=== PATIENT | male | born 2000 | race Asian ===

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

== ENCOUNTER 2025-03-14 12:09 | Inpatient (IN) | payer MEDICAID, OTHER ==
[~2025-03-14] VITALS: Ht 160 cm; Wt 49.0 kg
[2025-03-14 14:15] LABS: GLUCOMETER DEV NAME(LOC) POC.BV; POC SARS-COV2 AG, FIA NEGATIVE (NEGATIVE)
[2025-03-14 16:10] VITALS: BP 113/75; PULSE 86; RESP 16; TEMP 98.2; O2SAT 97
[2025-03-14] MEDS ORDERED: NICOTINE 14 MG/24 HOUR PATCH TD PRN (19:30)
[2025-03-14] MEDS ORDERED: ALBUTEROL SULFATE HFA 90 MCG/PUFF 8 GM INHALER IH PRN (19:30)
[2025-03-14] MEDS ORDERED: IBUPROFEN 400 MG TABLET PO PRN (19:30)
[2025-03-14] MEDS ORDERED: PETROLATUM,WHITE 28 GM JELLY TP PRN (19:30)
[2025-03-14] MEDS ORDERED: DOCUSATE SODIUM 100 MG CAPSULE PO PRN (19:30)
[2025-03-14] MEDS ORDERED: LOPERAMIDE HCL 2 MG CAPSULE PO PRN (19:30)
[2025-03-14] MEDS ORDERED: GuaiFENesin/D-METHORPHAN [SUGAR-FREE] 200-20MG/10 ML SYRUP UDCUP PO PRN (19:30)
[2025-03-14] MEDS ORDERED: ACETAMINOPHEN 325 MG TABLET PO PRN (19:30)
[2025-03-14] MEDS ORDERED: MAG HYDROX/ALUMINUM HYD/SIMETH ES 30 ML SUSPENSION UDCUP PO PRN (19:30)
[2025-03-14] MEDS ORDERED: ONDANSETRON 4 MG TABLET PO PRN (19:30)
[2025-03-14 20:11] VITALS: BP 118/74; PULSE 65; RESP 19; TEMP 98.1; O2SAT 100
[2025-03-15 08:27] VITALS: BP 113/74; PULSE 79; RESP 16; TEMP 97.5; O2SAT 99
[2025-03-15 09:41] LABS: CHOL/HDL RATIO 3.3 (4.2-7.3); LDL CHOL (CALC.) 63.0 mg/dL (0-130)
[2025-03-15 20:05] VITALS: BP 105/66; PULSE 80; RESP 18; TEMP 98.1; O2SAT 96
[2025-03-15] MEDS: ZOLPIDEM TARTRATE 10 MG TABLET PO PRN (21:30)
[2025-03-16 05:08] LABS: HEPATITIS C AB (EIA) Non Reactive (Non Reactive)
[2025-03-16 08:19] VITALS: BP 107/66; PULSE 87; RESP 18; TEMP 98.3; O2SAT 96
[2025-03-16] MEDS: MAGNESIUM HYDROXIDE SUSPENSION 30 ML UDCUP PO PRN (10:11)
[2025-03-16 20:31] VITALS: BP 115/88; PULSE 94; RESP 17; TEMP 99; O2SAT 99
[2025-03-17 08:28] VITALS: BP 116/77; PULSE 92; RESP 17; TEMP 97.5; O2SAT 97
[2025-03-17 20:26] VITALS: BP 118/78; PULSE 93; RESP 17; TEMP 97.8; O2SAT 98
[2025-03-18 08:10] VITALS: BP 117/90; PULSE 107; RESP 17; TEMP 98.4; O2SAT 99
[2025-03-18 09:20] LABS: APPEARANCE,URINE CLEAR (CLEAR); GLUCOSE, URINE (UA) NEGATIVE (NEGATIVE); LEUKOCYTE ESTERASE ,URINE NEGATIVE (NEGATIVE); NITRATE,URINE NEGATIVE (NEGATIVE); OCCULT BLOOD,URINE NEGATIVE (NEGATIVE); PH,URINE DRUG SCREEN 6.5 (5.0-8.0); SPECIFIC GRAVITIY, URINE 1.019 (1.003-1.030)
[2025-03-18 09:29] LABS: ALCOHOL, URINE DRUG SCREEN NEGATIVE (NEGATIVE); AMPHET/METH SCREEN,URINE NEGATIVE (NEGATIVE); BARBITURATE SCREEN, URINE NEGATIVE (NEGATIVE); CANNABINOID SCREEN,URINE POSITIVE (NEGATIVE); COCAINE SCREEN,URINE NEGATIVE (NEGATIVE); METHADONE SCREEN, URINE NEGATIVE (NEGATIVE)
[2025-03-18 17:24] VITALS: BP 133/89; PULSE 108; RESP 18; TEMP 98.1; O2SAT 98
[2025-03-18 22:24] VITALS: BP 128/86; PULSE 94; RESP 19; TEMP 98.1; O2SAT 97
[2025-03-19 10:14] VITALS: BP 113/63; PULSE 104; RESP 19; TEMP 98.8; O2SAT 96
[2025-03-19 21:05] VITALS: BP 118/80; PULSE 88; RESP 18; TEMP 98; O2SAT 98
[2025-03-20 09:43] VITALS: BP 122/83; PULSE 98; RESP 18; TEMP 97.8; O2SAT 99
[2025-03-20 21:21] VITALS: BP 125/86; PULSE 87; RESP 16; TEMP 98.1; O2SAT 97
[2025-03-21] MEDS ORDERED: ARIP5TAB37 PO (10:48)
[2025-03-21] MEDS ORDERED: FLUO-418 PO (10:48)
[2025-03-21 11:04] VITALS: BP 130/95; PULSE 60; RESP 18; TEMP 97.8; O2SAT 96
== END 2025-03-21 15:15 | disposition home or self-care (01) | DRG 750 ==
LOC: B2S 15:35 → 3EI 03-18 01:24
PROVIDERS: ADMIT Psychiatry & Neurology Psychiatry; ATTEND Psychiatry & Neurology Psychiatry
PROC: GZHZZZZ Group Psychotherapy (ICD-10-PCS; principal; 2025-03-15)
DX: F25.1 Schizoaffective disorder, depressive type (principal); E44.0 Moderate protein-calorie malnutrition; R45.851 Suicidal ideations; G47.00 Insomnia, unspecified; F19.10 Other psychoactive substance abuse, uncomplicated; Z20.822 Contact with and (suspected) exposure to COVID-19; Z68.1 Body mass index [BMI] 19.9 or less, adult; Z79.899 Other long term (current) drug therapy
CPT/HCPCS: 80061; 80307; 81003; 83036; 84443; 86803; 87340; G0480